=== PATIENT | male | born 1935 | race Caucasian/White ===

== ENCOUNTER → 2019-03-02 | Day surgery (SDC) | payer MEDICARE, OTHER ==
[~2019-03-02] VITALS: Ht 170.2 cm; Wt 98.6 kg
[~2019-03-02] MED LIST: ALBU8HFA IH; ALBUTEROL SULFATE 2.5 MG/0.5 ML NEB SOLUTION NEB ONE; ASPI81 PO; BENZOCAINE 20% 50 MCG/SPRAY 57 GM TP ONE; BUDE10.2 IH; BUSP5TAB20 PO; CLOP75TA3 PO; EZET10TA13 PO; FentaNYL CITRATE-PF 100 MCG/2 ML VIAL ONE; ISOS60TA4 PO; LIDOCAINE 2% 5 ML JELLY TP ONE; LIDOCAINE 4% 50 ML SOLUTION TP ONE; LISI-660 PO; LUBI8CAP PO; METO5TAB95 PO; MIDAZOLAM HCL 2 MG/2 ML VIAL ONE; MONT10TA21 PO; MULT1TAB66 PO; MethylPREDNISolone SOD SUCC 125 MG/2 ML VIAL IVP ONE; MethylPREDNISolone SOD SUCC 125 MG/2 ML VIAL ONE; NITR0.4T50 SL; OXYGEN THERAPY IH SCH; PRAV40TA4 PO; PROM6.2521 PO; RANI150T7 PO; SODIUM CHLORIDE 0.9% 1,000 ML IV ONE; TAMS-1 PO
== END | disposition home or self-care (01) ==
LOC: SURGERY 06:33
PROVIDERS: ATTEND Internal Medicine Critical Care Medicine
DX: R05 Cough (principal); R91.1 Solitary pulmonary nodule; J34.89 Other specified disorders of nose and nasal sinuses; J98.8 Other specified respiratory disorders; J38.4 Edema of larynx; B37.0 Candidal stomatitis; J44.9 Chronic obstructive pulmonary disease, unspecified; I25.10 Atherosclerotic heart disease of native coronary artery without angina pectoris; I10 Essential (primary) hypertension; E78.00 Pure hypercholesterolemia, unspecified; Z79.899 Other long term (current) drug therapy; Z98.41 Cataract extraction status, right eye; Z98.890 Other specified postprocedural states
CPT/HCPCS: 31623; 31624; 71045; 87015; 87070; 87101; 87205; 87206; 87220; 88108; 88312; 93005; J2250; J2930; J3010; J7030